=== PATIENT | female | born 2000 | race Caucasian/White ===

== ENCOUNTER 2024-06-04 13:15 | Emergency (ER) | payer OTHER, BC, SELFPAY ==
[2024-06-04 13:16] VITALS: BP 119/77; PULSE 100; RESP 18; TEMP 36.7; O2SAT 100
--- NOTE | 2024-06-04 13:22 | EX.ED.DYSGE1 ---
HPI History of Present Illness Chief Complaint: Lower Extremity Injury Narrative Narrative: Patient is a 24-year-old female who is coming into the ER today complaining of left ankle pain after an injury. [facility] Medical History (Updated 06/04/24 @ 15:[address] Augustin Kemp, DO) Ankle injury Home Medications ?Medication ?Instructions ?Recorded ?Last Taken ?Type hydrocodone-acetaminophen 5-325mg 1 tab PO Q4H PRN PRN Pain 2 days 06/04/24 Unknown Rx 5mg-325mg #10 TABLETS Allergy/AdvReac Type Severity Reaction Status Date / Time No Known Allergies Allergy Verified 06/04/24 13:16 Social History Smoking Status: Never smoker ROS ROS ED ROS Narrative REVIEW OF SYSTEMS: Unless otherwise stated in this report the patient's positive and negative responses for review of systems for constitutional, eyes, ENT, cardiovascular, respiratory, gastrointestinal, neurological, , musculoskeletal, and integument systems and related systems to the presenting problem are either stated in the history of present illness or were not pertinent or were negative for the symptoms and/or complaints related to the presenting medical problem. EXAM Physical Exam Narrative Exam Narrative: Vital signs reviewed and patient is not hypoxic. General: The patient appears well and in no apparent distress. Patient is resting comfortably on cart with obvious swelling and possible deformity noted to the right lateral malleolus. Not toxic, lethargic, or listless. Patient is speaking to her friends/coworkers at bedside. Skin: Warm, dry, no pallor noted. There is no rash noted. Head: Normocephalic, atraumatic Eye: Normal conjunctiva, no drainage, EOMI. PERRL. Ears, Nose, Mouth, and Throat: oral mucosa is moist. Nares patent. Mouth without vesicles. Cardiovascular: Regular Rate and Rhythm, no murmurs, gallops, or rubs Respiratory: Patient is in no distress, no accessory muscle use, lungs are clear to auscultation, no wheezing, rales or rhonchi Back: non-tender, GI: Soft, no tenderness Musculoskeletal: The patient has full range of motion of all extremities and joints with no difficulty except to the right distal fibula. Patient has swelling and ecchymosis noted to the distal third of the right fibula. Patient has no tenderness to palpation to the right medial fibula. Right Achilles tendon is intact. No bony tenderness to palpation to the right foot. Patient has moderate to severe tenderness palpation to the distal third of the right fibula. Patient is neurovascular intact to the right foot distal to the right lateral malleolus. Patient has no motor, no sensory deficits. Neurological: A&O x4, normal speech, no focal neurological deficits. Psychiatric: Cooperative Const Vital Signs: 06/04/24 13:16 Temperature 98.1 F Temperature Source Temporal Pulse Rate 100 Respiratory Rate 18 Blood Pressure 119/77 Blood Pressure Mean 91 Pulse Ox 100 Oxygen Delivery Method Room Air MDM MDM MDM Narrative Medical decision making narrative: Patient has a right distal fibular fracture. X-ray report was reviewed with the patient, a copy of x-ray report and pictures of the x-ray were placed on a CD. Patient lives in [place]. Patient was placed in a long posterior splint with crutches. Patient took Advil 1/2-hour prior to arrival. Patient did not want anything initially for pain, then she agreed to taking [place] to help with pain. Patient was recommended on elevation, ice, and patient will follow-up with orthopedic surgery that family knows in [place]. Patient was given a [place] prior to discharge. Patient was sent home with [place] to use as needed, otherwise was educated on alternating Motrin and And Tylenol at home. Work note was given as well. Patient says that she is going home tomorrow back to [place], and she will see orthopedic surgeon locally Procedure note: Patient was placed in a long posterior splint and crutches. Splint was assisted with Dr. Kemp. The patient was neurovascular intact before and after the splint was placed. The affected bones/injured area had proper alignment in a splint. Education on splint care at home was given at bedside. Patient and family had no questions at disposition. Radiography Diagnostic Testing: Clinical Impression(s) from Imaging Studies Ankle X-Ray 06/04/24 13:25 IMPRESSION: Distal fibular fracture. Electronically Signed: Kendy Wilkerson MD at 13:40 EST , Discharge Plan Triage Chief Complaint: Lower Extremity Injury ED Provider: Augustin Kemp Dx/Rx/DC Orders Clinical Impression: Fracture of fibula, distal, right, closed Instructions: Splint Care, Crutches Stand Wt Bearing Steps, Understanding Compartment Syndrome, ED Ankle Fracture, Distal Fibula, ED Splints and Casts Prescriptions: New hydrocodone-acetaminophen 5-325 mg tablet 1 tab PO Q4H PRN PRN (Reason: Pain) 2 Days Qty: 10 0RF Stand Alone Forms: ED Work / School Excuse Primary Care Provider: IVA CHAN Referrals: IVA CHAN [Other] Carmelo Merida MD [Non-Staff] - Activity Restrictions/Additional Instructions: Use ice 20 minutes on, 20 minutes off. Do not take your splint off until you follow-up with orthopedic surgery A copy of the x-ray report and a copy of the x-ray on a CD has been given to. When you get home in [place], follow-up with orthopedic surgeon in the next week for follow-up and definitive treatment. Your family doctor can help get you set up with a orthopedic surgeon as well. Nonweightbearing until you follow-up with orthopedic surgery, crutches teach and treat were done. Alternate Tylenol and either Motrin, Advil, ibuprofen every 4 hours. If the pain is severe, substitute [place] for Tylenol. Max Tylenol dose per day is 3000 mg, max either Motrin, Advil, ibuprofen dose is 2400 mg a day. Education and compartment syndrome was done at bedside and discharge paperwork. Print Language: Yakut Disposition Disposition: Home, Self Care Discharge Date/Time: 06/04/24 15:43
--- NOTE | 2024-06-04 13:25 | RAD_ITS ---
INDICATION: pain EXAMINATION/TECHNIQUE: X-RAY - RIGHT XR Ankle Min 3 Views 3 VIEWS COMPARISON: No relevant prior comparison study available FINDINGS: SOFT TISSUES: No soft tissue swelling or gas. No radiopaque foreign body. BONES/JOINTS: There is an oblique intra-articular fracture within the distal fibular metaphysis. There is minimal lateral displacement of the distal fibula. No sclerotic or destructive changes observed. RAD/Ankle min 3 Views IMPRESSION: Distal fibular fracture. Electronically Signed: Kendy Wilkerson MD at 13:40 EST ,
[2024-06-04] MEDS: HYDROcodone Bitartrate/Apap 5/325 Tablet PO (15:02)
== END 2024-06-04 15:43 | disposition home or self-care (01) ==
PROVIDERS: Emergency Provider Emergency Medicine; Visit Provider Emergency Medicine
DX: S82.401A Unspecified fracture of shaft of right fibula, initial encounter for closed fracture (principal); X58.XXXA Exposure to other specified factors, initial encounter
CPT/HCPCS: 73610; 99283